=== PATIENT | female | born 1935 | race Caucasian/White ===

== ENCOUNTER 2016-06-15 16:43 | Emergency (ER) | payer OTHER ==
[~2016-06-15 16:43] MED LIST: AMOX500C3 PO; ASCO1CAP3 PO; CRG40 PO; CRS/10 PO; FLEC50TA PO; IBUP-1050 PO; IBUP1TAB55 PO; LISI10TA PO; MAGN400T25 PO; METF1000 PO; MULTCHW PO
[2016-06-15 16:47] VITALS: TEMP 36.5
[2016-06-15 17:12] VITALS: O2SAT 98
[2016-06-15] MEDS ORDERED: SODIUM CHLORIDE 0.9% 1000ML 1,000 ML IV STA (17:30)
[2016-06-15] MEDS ORDERED: SODIUM CHLORIDE 0.9% 500ML 500 ML IV STA (17:30)
[2016-06-15] MEDS ORDERED: MECLIZINE HCL 25 MG TAB PO STA (17:30)
[2016-06-15] MEDS ORDERED: ONDANSETRON INJ 2 MG/ML 2 ML VIAL IV STA (17:30)
--- NOTE | 2016-06-15 17:31 | EMERGENCY ROOM VISIT NOTE ---
History Report prepared by Remberto: Di Blandon Under the Supervision of: Dr. Judith Powers M.D. First contact with patient: 17:12 Chief Complaint: DIZZY Stated Complaint: NAUSEA, FAINTNESS Nursing Triage Summary: Pt reports in the last hour she developed severe dizziness and is unable to open her eyes because "the room just spins." Pt also reports nausea and an episode of vomitting on the way here. History of Present Illness The patient is a 80 year old female who presents to the Emergency Room with complaints of persistent dizziness. She reports the dizziness started when she woke up from a nap around 1400 today. Immediately after she awoke, she felt like the room was "spinning" and reports opening her eyes worsened her symptoms. She notes her morning was "great". She was able to visit a local museum and walked her dogs. On the way back home, she got cocoa from [employer] , but did not drink all of it as it was "too rich". She began vomiting around 1630 this afternoon and admits to some diarrhea. She denies any headache. The patient's friend notes she recently underwent some medication changes from Dr. Bledsoe, [facility] [place]. She thinks she was taken off Metformin, but is not completely sure. The patient lives alone but states her friends and cleaning lady check on her occasionally. Source of History: patient Onset: 1400 today Position: other (global) Timing: other (persistent) Modifying Factors (Worsening): other (opening her eyes) Associated Symptoms: + diarrhea, + nausea, + vomiting, No headache Review of Systems See HPI for pertinent positives & negatives. A total of 10 systems reviewed and were otherwise negative. Past Medical & Surgical Medical Problems: (1) Arrhythmia (2) Diabetes mellitus Family History FH: diabetes mellitus Social History Smoking Status: Never Smoker Smokeless Tobacco Use: No Alcohol Use: none Drug Use: none Marital Status: Housing Status: lives alone Occupation Status: retired Current/Historical Medications Scheduled Flecainide Acetate (Tambocor), 50 MG PO Q12 Ibuprofen (Advil), 400-600 MG PO QAM Ibuprofen-Diphenhydramine Citr (Ibuprofen Pm), 1 TAB PO HS Lisinopril (Prinivil), 10 MG PO BID Metformin Hcl (Glucophage), 1,000 MG PO BID Multiple Vitamins W/ Minerals (Centrum Silver), 1 TAB PO DAILY Rosuvastatin Calcium (Crestor), 10 MG PO Q2D Scheduled PRN Meclizine HCl (Meclizine HCl), 1 TAB PO Q8 PRN for vertigo Allergies Coded Allergies: Morphine (Verified Allergy, Mild, IRRATABILITY/HALUCINATIONS, 06/15/16) Physical Exam Vital Signs Date Time Temp Pulse Resp B/P Pulse Ox O2 Delivery O2 Flow Rate FiO2 06/15/16 19:48 79 18 115/57 99 06/15/16 18:12 71 18 133/64 100 Room Air 06/15/16 17:31 86 16 95/78 94 Room Air 06/15/16 17:12 98 Room Air 06/15/16 17:04 78 06/15/16 17:01 79 18 158/74 98 Room Air 06/15/16 16:47 36.5 80 20 175/89 99 Room Air Physical Exam Vital signs reviewed. General: Elderly, but well-appearing 80 year old female, in no significant distress. HEENT: No scleral icterus, PERRLA, neck supple. Atraumatic. Cardiovascular: Regular rate and rhythm, no extra sounds. Pulmonary: Clear to auscultation bilaterally, normal work of breathing. Abdomen: Soft, nontender, nondistended, positive bowel sounds. Musculoskeletal: Atraumatic, no peripheral edema. Neurologic: Patient awake alert and oriented x 3. Skin: Warm, dry, no rash Medical Decision & Procedures ER Provider Diagnostic Interpretation: This CT scan was reviewed and interpreted by the radiologist and reviewed by myself. HEAD CT NONCONTRAST Impression: Age-related change. No acute process. Electronically signed by: Carlyle Mullen M.D. 06/15/2016 6:09 PM Laboratory Results 06/15/16 17:00 Red Blood Count 3.81, Mean Corpuscular Volume 89.8, Mean Corpuscular Hemoglobin 31.0, Mean Corpuscular Hemoglobin Concent 34.5, Mean Platelet Volume 11.4, Neutrophils (%) (Auto) 67.0, Lymphocytes (%) (Auto) 24.4, Monocytes (%) (Auto) 5.7, Eosinophils (%) (Auto) 2.0, Basophils (%) (Auto) 0.7, Neutrophils # (Auto) 3.05, Lymphocytes # (Auto) 1.11, Monocytes # (Auto) 0.26, Eosinophils # (Auto) 0.09, Basophils # (Auto) 0.03 06/15/16 17:00 Test 06/15/16 17:00 White Blood Count 4.55 K/uL (4.8-10.8) Red Blood Count 3.81 M/uL (4.2-5.4) Hemoglobin 11.8 g/dL (12.0-16.0) Hematocrit 34.2 % (37-47) Mean Corpuscular Volume 89.8 fL (80-100) Mean Corpuscular Hemoglobin 31.0 pg (25-34) Mean Corpuscular Hemoglobin Concent 34.5 g/dl (32-36) Platelet Count 191 K/uL (130-400) Mean Platelet Volume 11.4 fL (7.4-10.4) Neutrophils (%) (Auto) 67.0 % Lymphocytes (%) (Auto) 24.4 % Monocytes (%) (Auto) 5.7 % Eosinophils (%) (Auto) 2.0 % Basophils (%) (Auto) 0.7 % Neutrophils # (Auto) 3.05 K/uL (1.4-6.5) Lymphocytes # (Auto) 1.11 K/uL (1.2-3.4) Monocytes # (Auto) 0.26 K/uL (0.11-0.59) Eosinophils # (Auto) 0.09 K/uL (0-0.5) Basophils # (Auto) 0.03 K/uL (0-0.2) RDW Standard Deviation 39.5 fL (36.4-46.3) RDW Coefficient of Variation 12.1 % (11.5-14.5) Immature Granulocyte % (Auto) 0.2 % Immature Granulocyte # (Auto) 0.01 K/uL (0.00-0.02) Anion Gap 10.0 mmol/L (3-11) Estimated GFR () 88.5 Estimated GFR (Non- 76.3 BUN/Creatinine Ratio 28.8 (10-20) Calcium Level 9.5 mg/dl (8.5-10.1) Magnesium Level 1.7 mg/dl (1.8-2.4) Total Bilirubin 0.4 mg/dl (0.2-1) Direct Bilirubin < 0.1 mg/dl (0-0.2) Aspartate Amino Transf (AST/SGOT) 17 U/L (15-37) Alanine Aminotransferase (ALT/SGPT) 20 U/L (12-78) Alkaline Phosphatase 70 U/L (45-117) Total Protein 7.3 gm/dl (6.4-8.2) Albumin 4.2 gm/dl (3.4-5.0) Laboratory results per my review. Medications Administered Medications (Trade) Dose Ordered Sig/Sal Route Start Time Stop Time Status Last Admin Dose Admin Sodium Chloride 500 ml @ 999 mls/hr Q31M STAT IV 06/15/16 17:30 06/15/16 18:04 DC 06/15/16 18:11 999 MLS/HR Sodium Chloride (Nss 1000ml) 1,000 ml @ 125 mls/hr Q8H STAT IV 06/15/16 17:30 06/15/16 20:01 DC 06/15/16 18:11 125 MLS/HR Meclizine HCl (Antivert Tab) 25 mg NOW STAT PO 06/15/16 17:30 06/15/16 17:32 DC 06/15/16 18:11 25 MG Ondansetron HCl (Zofran Inj) 4 mg NOW STAT IV 06/15/16 17:30 06/15/16 17:32 DC 06/15/16 18:11 4 MG Meclizine HCl (Antivert 25MG Home Pack) 1 homepack UD ONCE PO 06/15/16 19:15 06/15/16 19:16 DC 06/15/16 19:44 1 HOMEPACK ECG Indication: weakness (dizziness) Rate (beats per minute): 73 Rhythm: normal sinus Findings: other (previous septal infarct) Change: no significant change (No significant change from March 31, 2017) ED Course 1724: Past medical records reviewed. The patient was evaluated in room A10. A complete history and physical examination was performed. 1730: Zofran 4 mg IV, Meclizine HCl 25 mg PO, NSS 1000 ml @ 125 mls/hr IV, NSS 500 ml @ 999 mls/hr IV. 1905: I reevaluated the patient. She is feeling much better. I discussed her results and discharge instructions and she verbalized complete understanding and agreement. 5: Meclizine HCl 1 home pack PO. Medical Decision Differential diagnosis: Etiologies such as benign positional vertigo, dehydration, hypovolemia, anemia, tumor, infection, hypoglycemia, electrolyte abnormalities, cardiac sources, intracerebral event, toxicologic, neurologic, as well as others were entertained. This patient was evaluated and appeared to be in no significant distress. IV access was obtained and laboratory work was drawn. The patient was hydrated with normal saline solution, given oral meclizine and IV Zofran. Laboratory work was obtained and is fairly unrevealing. CT scan of the head was performed and is negative for acute intracranial abnormality. Urinalysis is clear. The patient was informed of the findings. I do not suspect an acute intracranial or cardiac source. The patient likely suffering from vertigo. She was discharged with a prescription for meclizine and will follow-up with her physician this week for reevaluation. She was encouraged to obtain a life alert button. Her son was on the phone and I reinforced this issue. She will return to the ER for worsening symptoms or any medical concerns. Impression Primary Impression: Benign positional vertigo Scribe Attestation The scribe's documentation has been prepared under my direction and personally reviewed by me in its entirety. I confirm that the note above accurately reflects all work, treatment, procedures, and medical decision making performed by me. Departure Information Dispostion Home / Self-Care Prescriptions Meclizine HCl (Meclizine HCl) 25 Mg Tab 1 TAB PO Q8 Y for vertigo, #20 TAB Prov: Judith Powers M.D. 06/15/16 Referrals Kamlesh Robert M.D. (PCP) Patient Instructions My [facility] Additional Instructions Diagnosis: Vertigo Drink plenty of clear fluids. Meclizine 25 mg every 8 hours as needed for vertigo. Follow-up with your physician this week for continued symptoms. Return to the ER immediately for worsening of symptoms or any medical concerns. Problem Qualifiers Primary Impression: Benign positional vertigo Laterality: bilateral Qualified Codes: H81.13 - Benign paroxysmal vertigo, bilateral
[2016-06-15 17:36] LABS: BASO % 0.7 %; BASO ABS # 0.03 K/uL (0-0.2); COMPLETE YES; HEMATOCRIT 34.2 % (37-47); IG% 0.2 %; LYMPH % 24.4 %; LYMPH ABS # 1.11 K/uL (1.2-3.4); MEAN CELL VOLUME 89.8 fL (80-100); MEAN CORPUSCULAR HGB CONC 34.5 g/dl (32-36); MEAN PLATELET VOLUME 11.4 fL (7.4-10.4); MONO % 5.7 %; PLATELET COUNT 191 K/uL (130-400); RED BLOOD COUNT 3.81 M/uL (4.2-5.4); WHITE BLOOD COUNT 4.55 K/uL (4.8-10.8)
[2016-06-15 17:47] LABS: ALT/SGPT 20 U/L (12-78); AST/SGOT 17 U/L (15-37); BLOOD UREA NITROGEN 22 mg/dl (7-18); BUN/CREATININE RATIO 28.8 (10-20); CALCIUM 9.5 mg/dl (8.5-10.1); CARBON DIOXIDE 26 mmol/L (21-32); CHLORIDE 104 mmol/L (98-107); CREATININE 0.75 mg/dl (0.60-1.20); GLUCOSE 147 mg/dl (70-99); MAGNESIUM 1.7 mg/dl (1.8-2.4); POTASSIUM 3.7 mmol/L (3.5-5.1); SODIUM 140 mmol/L (136-145)
[2016-06-15 17:49] LABS: ALKALINE PHOSPHATASE 70 U/L (45-117)
--- NOTE | 2016-06-15 18:10 | DIAGNOSTIC IMAGING REPORT ---
HEAD CT NONCONTRAST CT DOSE: 712.55 mGy.cm HISTORY: Mental status change vertigo TECHNIQUE: Multiaxial CT images of the head were performed without the use of intravenous contrast. Comparison: None. Findings: The paranasal sinuses and mastoid air cells are clear. The calvarium and skull base are intact. The ventricles and sulci are within normal limits. There is no mass, hematoma, midline shift, or acute infarct. Chronic small vessel change of aging. No acute intracranial hemorrhage. Impression: Age-related change. No acute process. Electronically signed by: Carlyle Mullen M.D. 06/15/2016 6:09 PM Dictated Date/Time: 06/15/2016 6:08 PM
[2016-06-15] MEDS ORDERED: ANT25 PO (19:07)
[2016-06-15] MEDS ORDERED: MECLIZINE HCL 25MG HOME PACK PO ONE (19:15)
[2016-06-15 19:48] VITALS: BP 115/57; PULSE 79; O2SAT 99
== END 2016-06-15 19:49 | disposition home or self-care (01) ==
LOC: C.EDB 16:45 → C.EDA 19:49
DX: H81.13 Benign paroxysmal vertigo, bilateral (principal); E11.9 Type 2 diabetes mellitus without complications; Z79.899 Other long term (current) drug therapy

== ENCOUNTER → 2016-09-11 | Outpatient (CLI) | payer OTHER ==
[~2016-09-11] MED LIST changes: -AMOX500C3 PO; +ANT25 PO; -ASCO1CAP3 PO; -CRG40 PO; -MAGN400T25 PO
[2016-09-11 12:43] LABS: BASO % 0.4 %; BASO ABS # 0.02 K/uL (0-0.2); COMPLETE YES; EOS % 1.2 %; HEMATOCRIT 34.1 % (37-47); IG% 0.2 %; LYMPH % 18.4 %; LYMPH ABS # 0.91 K/uL (1.2-3.4); MEAN CELL VOLUME 92.7 fL (80-100); MEAN CORPUSCULAR HEMOGLOBIN 30.4 pg (25-34); MEAN CORPUSCULAR HGB CONC 32.8 g/dl (32-36); MEAN PLATELET VOLUME 11.5 fL (7.4-10.4); MONO % 6.3 %; NEUT % 73.5 %; PLATELET COUNT 187 K/uL (130-400); RED BLOOD COUNT 3.68 M/uL (4.2-5.4); WHITE BLOOD COUNT 4.95 K/uL (4.8-10.8)
[2016-09-11 12:59] LABS: ESTIMATED AVERAGE GLUCOSE 134 mg/dl; HA1C FLAG Normal (Normal)
[2016-09-11 13:28] LABS: BLOOD UREA NITROGEN 26 mg/dl (7-18); BUN/CREATININE RATIO 38.8 (10-20); CALCIUM 9.2 mg/dl (8.5-10.1); CARBON DIOXIDE 29 mmol/L (21-32); CHLORIDE 107 mmol/L (98-107); CHOLESTEROL 174 mg/dl (0-200); CREATININE 0.67 mg/dl (0.60-1.20); GLUCOSE 121 mg/dl (70-99); POTASSIUM 4.6 mmol/L (3.5-5.1); SODIUM 142 mmol/L (136-145)
[2016-09-11 13:39] LABS: ALB/GLOB RATIO 1.4 (0.9-2); ALKALINE PHOSPHATASE 69 U/L (45-117); ALT/SGPT 26 U/L (12-78); AST/SGOT 15 U/L (15-37); CHOLESTEROL/HDL RATIO 2.8; HDL CHOLESTEROL 62 mg/dl; LDL CHOLESTEROL CALCULATED 92 mg/dl; TRIGLYCERIDES 100 mg/dl (0-150); VERY LOW DENSITY LIPOPROT CALC 20 mg/dl
== END | disposition home or self-care (01) ==
LOC: C.LAB1850 10:44
PROVIDERS: ATTEND Internal Medicine Pulmonary Disease
DX: E11.9 Type 2 diabetes mellitus without complications (principal); E78.5 Hyperlipidemia, unspecified; I34.0 Nonrheumatic mitral (valve) insufficiency; D64.9 Anemia, unspecified; I35.0 Nonrheumatic aortic (valve) stenosis; R41.3 Other amnesia; R29.898 Other symptoms and signs involving the musculoskeletal system

== ENCOUNTER → 2017-02-28 | Outpatient (CLI) | payer OTHER ==
--- NOTE | 2017-02-28 14:35 | MAMMOGRAPHY REPORT ---
BILATERAL DIGITAL SCREENING MAMMOGRAM WITH CAD: 02/28/2017 CLINICAL HISTORY: Routine screening. Patient has no complaints. TECHNIQUE: Current study was also evaluated with a Computer Aided Detection (CAD) system. Bilateral CC and MLO views were obtained. COMPARISON: Comparison is made to exams dated: 02/28/2016 mammogram, 02/24/2015 mammogram, 04/14/2012 mammogram, 04/12/2011 mammogram, 01/03/2010 mammogram, and 01/21/2006 mammogram - [facility]. BREAST COMPOSITION: There are scattered areas of fibroglandular density in both breasts. FINDINGS: No suspicious masses, calcifications, or areas of architectural distortion are noted in ei ther breast. There has been no significant interval change compared to prior exams. Scattered bilater al benign-appearing calcifications are not significantly changed. Asymmetry in the left superior dawna ast is stable dating back to the 2009 exam. IMPRESSION: ACR BI-RADS CATEGORY 2: BENIGN There is no mammographic evidence of malignancy. A 1 year screening mammogram is recommended. The pa tient will receive written notification of the results. Approximately 10% of breast cancers are not detected with mammography. A negative mammographic report should not delay biopsy if a clinically suggestive mass is present. Sheila Nunez M.D. ah/:02/28/2017 11:33:06 [employer]ice: Lindsay ANG)(M), [facility] letter sent: Normal 1/2 BI-RADS Code: ACR BI-RADS Category 2: Benign
== END | disposition home or self-care (01) ==
LOC: C.MAMM 11:04
PROVIDERS: ATTEND Internal Medicine Pulmonary Disease
DX: Z12.31 Encounter for screening mammogram for malignant neoplasm of breast (principal)

== ENCOUNTER → 2017-03-20 | Outpatient (CLI) | payer OTHER ==
--- NOTE | 2017-03-20 11:43 | DIAGNOSTIC IMAGING REPORT ---
R SHOULDER MIN 2 VIEWS ROUTINE CLINICAL HISTORY: 81 years-old Female presenting with right SHOULDER PAIN. TECHNIQUE: Internal rotation, external rotation, and Grashey views of the right shoulder were obtained. COMPARISON: Correlation made to chest x-ray from 03/30/2014. FINDINGS: Glenohumeral and acromioclavicular joints congruent. Bony spurring at the acromion noted. Only minimal osteophytosis noted anteriorly at the glenohumeral joint. Preservation of joint space. No subluxation of the humeral head. No acute fracture or malalignment. Visualized portion of the right hemithorax normal. IMPRESSION: No acute osseous injury of the right shoulder. Bony spurring of the acromion process. Electronically signed by: Jluis Mendoza M.D. 03/20/2017 11:41 AM Dictated Date/Time: 03/20/2017 11:40 AM
== END | disposition home or self-care (01) ==
LOC: C.RAD1850 11:18
PROVIDERS: ATTEND Internal Medicine Pulmonary Disease
DX: M25.511 Pain in right shoulder (principal); M75.91 Shoulder lesion, unspecified, right shoulder